=== PATIENT | male | born 1965 | race Caucasian/White ===

== ENCOUNTER → 2017-08-21 10:13 | Outpatient (CLI) | payer BC, SELFPAY ==
[2017-08-21 13:39] LABS: Basophils % 0.2 % (0.1-2.0); Eosinophils # 0.1 K/mm3 (0.0-0.4); Eosinophils % 1.1 % (0.1-12.0); Hematocrit 44.5 % (42.0-52.0); Hemoglobin 14.5 g/dL (14.1-18.0); Lymphocytes # 2.1 K/mm3 (0.7-4.5); Lymphocytes % 27.7 K/mm3 (10-50); Mean Corpuscular HGB Conc 32.6 g/dL (31.8-35.4); Mean Corpuscular Hemoglobin 29.2 pg (27.0-31.2); Mean Corpuscular Volume 89.6 fl (80-94); Mean Platelet Volume 8.2 fl (7.4-10.4); Monocytes # 0.5 K/mm3 (0.1-1.0); Monocytes % 6.2 % (1.7-9.3); Neutrophils # 4.9 K/mm3 (1.8-7.8); Neutrophils % 64.8 % (37.0-80.0); Platelet Count 296 K/mm3 (142-424); Red Blood Count 4.97 M/mm3 (4.60-6.20); White Blood Count 7.6 K/mm3 (4.8-10.8)
[2017-08-21 14:03] LABS: Alanine Aminotransferase 26 U/L (12-78); Albumin Level 3.6 gm/dL (3.4-5.0); Albumin/Globulin Ratio 1.1 (1.1-1.8); Alkaline Phosphatase 69 U/L (46-116); Aspartate Amino Transferase 10 U/L (15-37); Bilirubin,Total 0.3 mg/dL (0.2-1.0); Blood Urea Nitrogen 21 mg/dL (7-18); Calcium 8.7 mg/dL (8.5-10.1); Carbon Dioxide 30 mmol/L (21.0-32.0); Chloride 106 mmol/L (98-107); Chol/HDL Ratio 4.5 (1-3.5); Cholesterol 187 mg/dL (140-200); Creatinine,Serum 1.12 mg/dL (0.70-1.30); Estimated Glomerular Filt Rate 69 ml/min (>60); GFR (African American) 83 ML/MIN (>60); Globulin 3.4 gm/dl (1.3-3.2); Glucose 93 mg/dL (74-106); HDL Cholesterol 42 mg/dL (27-67); LDL Cholesterol 125 mg/dL (0-130); Sodium 143 mmol/L (136-145); T4 (Thyroxine) 7.4 ug/dl (4.7-13.3); Thyroid Stimulating Hormone 1.59 uIU/ml (0.358-3.740); Triglycerides 102 mg/dL (30-200); VLDL Cholesterol 20 mg/dL (0-40)
[2017-08-22 11:39] LABS: PSA, Free 0.21 ng/mL; Prostate Specific Ag 0.7 ng/mL (0.0-4.0); Testosterone,Total 371 ng/dL (264-916)
== END ==
PROVIDERS: Visit Provider Physician Assistant
DX: L50.9 Urticaria, unspecified (principal)
CPT/HCPCS: 80053; 80061; 84153; 84154; 84403; 84436; 84443; 85025; 86677

== ENCOUNTER → 2017-09-04 14:08 | Outpatient (CLI) | payer BC, SELFPAY ==
--- NOTE | 2017-09-04 14:16 | US_ITS ---
US Arterial Ankle Brachial Ind ITS.REASON: cold feet, diminished pulses ORDERING PHYSICIAN: ANÍBAL Dougherty PATIENT AGE: 51 years TECHNIQUE: Segmental pressures obtained of both right and left leg. These are compared to brachial blood pressure to yield index at each level sampled including summary ZBIGNIEW. The data sheets from the procedure are available in PACS FINDINGS Rest study only performed today No prior studies available for comparison. Blood pressures reported are in millimeters mercury. RIGHT LEG ZBIGNIEW = 1.2. Right TBI is 0.8 Brachial BP: 133 Thigh BP: 134 Calf BP: 157 Ankle PT: 165 Ankle DP : 145 Digit =107 LEFT LEG ZBIGNIEW = 1.2 Left TBI 0.8 Brachial BPD: 133 Thigh BP: 146 Calf BP: 148 Ankle PT:153 Ankle DP: 157 Digit = 112 Pulses and waveforms: Normal IMPRESSION: The ABIs as reported above are within normal limits. Waveforms and pulses are also unremarkable.
== END ==
PROVIDERS: PCP Physician Assistant; Visit Provider Physician Assistant
DX: L50.9 Urticaria, unspecified (principal); R09.89 Other specified symptoms and signs involving the circulatory and respiratory systems
CPT/HCPCS: 93922

== ENCOUNTER → 2018-12-28 10:23 | Outpatient (CLI) | payer BC, SELFPAY ==
[2018-12-28 14:22] LABS: Basophils % 0.3 % (0.1-2.0); Eosinophils # 0.1 K/mm3 (0.0-0.4); Eosinophils % 1.7 % (0.1-12.0); Hematocrit 48.9 % (42.0-52.0); Hemoglobin 15.3 g/dL (14.1-18.0); Lymphocytes % 24.5 % (10-50); Mean Corpuscular HGB Conc 31.2 g/dL (31.8-35.4); Mean Corpuscular Hemoglobin 29.5 pg (27.0-31.2); Mean Corpuscular Volume 94.5 fl (80-94); Monocytes # 0.4 K/mm3 (0.1-1.0); Monocytes % 5.4 % (1.7-9.3); Neutrophils # 5.5 K/mm3 (1.8-7.8); Neutrophils % 68.1 % (37.0-80.0); Platelet Count 311 K/mm3 (142-424); Red Blood Count 5.18 M/mm3 (4.60-6.20); Red Cell Distribution Width 13.3 % (11.5-17.5)
[2018-12-28 14:54] LABS: Alanine Aminotransferase 28 U/L (12-78); Albumin Level 3.6 gm/dL (3.4-5.0); Albumin/Globulin Ratio 1.1 (1.1-1.8); Alkaline Phosphatase 71 U/L (46-116); Anion Gap 14.4 mEq/L (5-15); Aspartate Amino Transferase 15 U/L (15-37); Bilirubin,Total 0.3 mg/dL (0.2-1.0); Blood Urea Nitrogen 24 mg/dL (7-18); Calcium 8.5 mg/dL (8.5-10.1); Carbon Dioxide 27 mmol/L (21.0-32.0); Chloride 107 mmol/L (98-107); Chol/HDL Ratio 6.6 (1-3.5); Cholesterol 191 mg/dL (140-200); Creatinine,Serum 1.26 mg/dL (0.70-1.30); Estimated Glomerular Filt Rate 60 ml/min (>60); GFR (African American) 72 ML/MIN (>60); Globulin 3.3 gm/dl (1.3-3.2); Glucose 107 mg/dL (74-106); HDL Cholesterol 29 mg/dL (27-67); LDL Cholesterol 116 mg/dL (0-130); Potassium 4.4 mmoL/L (3.5-5.1); Sodium 144 mmol/L (136-145); Thyroid Stimulating Hormone 1.36 uIU/ml (0.358-3.740); Total Protein,Serum 6.9 gm/dL (6.4-8.2); Triglycerides 231 mg/dL (30-200); VLDL Cholesterol 46 mg/dL (0-40)
[2018-12-30 13:54] LABS: Vitamin D 25 Hydroxy 22.2 ng/mL (30.0-100.0)
[2018-12-30 14:41] LABS: H. pylori Breath Test Negative (Negative)
== END ==
PROVIDERS: PCP Physician Assistant; Visit Provider Physician Assistant
DX: R53.83 Other fatigue (principal); R07.9 Chest pain, unspecified; E55.9 Vitamin D deficiency, unspecified; Z79.899 Other long term (current) drug therapy
CPT/HCPCS: 80053; 80061; 82652; 83013; 84436; 84443; 85025

== ENCOUNTER → 2019-01-22 16:25 | Outpatient (CLI) | payer BC, SELFPAY ==
--- NOTE | 2019-01-22 16:31 | XR_ITS ---
XR knee LT 3V HISTORY: ITS.REASON: pain ORDERING PHYSICIAN: Teresa Hickey APRN PATIENT AGE: 53 years COMPARISON: None FINDINGS: Mild osteoarthritic changes are present at the medial compartment. Small osteophytes are present at the proximal tibia. No fracture or dislocation IMPRESSION: Mild osteoarthritis
== END ==
PROVIDERS: PCP Physician Assistant; Visit Provider Nurse Practitioner Family
DX: M25.562 Pain in left knee (principal)
CPT/HCPCS: 73562

== ENCOUNTER → 2020-03-09 16:28 | Outpatient (CLI) | payer BC, MEDICAID, SELFPAY ==
--- NOTE | 2020-03-09 16:38 | XR_ITS ---
PROCEDURE: XR CHEST 2V CLINICAL HISTORY: pre op Cough COMPARISON: No exams were available for comparison FINDINGS: The cardiomediastinal silhouette and pulmonary vascularity are within normal limits. The lungs are clear without infiltrates, suspicious nodules, or pleural effusions. No acute bony abnormalities. IMPRESSION: No acute findings. Dictated by: Christian Rivera MD 03/10/2020 06:32 Christian Rivera MD in [facility] 03/10/2020 06:32
--- NOTE | 2020-03-09 16:57 | ECG_ITS ---
APPROVED REPORT Exam: Resting ECG HR:58 bpm ECG Measurements Heart Rate 58 AXES MS 188 P 40 QRSd 112 QRS 33 QT 420 T 30 QTc 412 <Conclusion> Sinus bradycardia Otherwise normal ECG Electronically signed by : Israel Jane, 03/10/2020 07:26:27
[2020-03-09 17:14] LABS: Basophils % 0.4 % (0.1-2.0); Eosinophils # 0.2 K/mm3 (0.0-0.4); Eosinophils % 1.6 % (0.1-12.0); Hematocrit 42.1 % (42.0-52.0); Hemoglobin 14.2 g/dL (14.1-18.0); Lymphocytes # 2.8 K/mm3 (0.7-4.5); Mean Corpuscular HGB Conc 33.7 g/dL (31.8-35.4); Mean Corpuscular Hemoglobin 30.5 pg (27.0-31.2); Mean Corpuscular Volume 90.6 fl (80-94); Mean Platelet Volume 7.9 fl (7.4-10.4); Monocytes # 0.6 K/mm3 (0.1-1.0); Monocytes % 6.2 % (1.7-9.3); Neutrophils # 5.8 K/mm3 (1.8-7.8); Neutrophils % 61.8 % (37.0-80.0); Platelet Count 287 K/mm3 (142-424); Red Blood Count 4.65 M/mm3 (4.60-6.20); Red Cell Distribution Width 13.4 % (11.5-17.5); White Blood Count 9.5 K/mm3 (4.8-10.8)
[2020-03-09 17:23] LABS: Activated Partial Thrombo Time 24.5 seconds (23.6-34.0); INR 1.03 (0.9-1.1); Prothrombin Time 10.6 seconds (9.4-11.8)
[2020-03-09 18:08] LABS: Alanine Aminotransferase 20 U/L (12-78); Albumin Level 3.8 g/dl (3.5-5.0); Albumin/Globulin Ratio 1.3 (1.1-1.8); Alkaline Phosphatase 80 U/L (38-126); Anion Gap 8.4 mEq/L (5-15); Aspartate Amino Transferase 23 U/L (17-59); Bilirubin,Total 0.3 mg/dl (0.2-1.3); Blood Urea Nitrogen 18 mg/dl (9-20); Carbon Dioxide 29 mmol/L (22.0-30.0); Chloride 106 mmol/L (98-107); Chol/HDL Ratio 6.2 (1-3.5); Cholesterol 211 mg/dl (140-200); Estimated Glomerular Filt Rate 69 ml/min (>60); GFR (African American) 84 ML/MIN (>60); Glucose 105 mg/dl (74-100); HDL Cholesterol 34 mg/dl (40-60); Potassium 4.4 mmoL/L (3.5-5.1); Sodium 139 mmol/L (136-145); Total Protein,Serum 6.8 g/dl (6.3-8.2); Triglycerides 270 mg/dl (30-150); VLDL Cholesterol 54 mg/dL (0-40)
[2020-03-09 18:19] LABS: Direct LDL Cholesterol 131.35 mg/dL (100-129)
[2020-03-09 18:26] LABS: T4 (Thyroxine) 7.8 ug/dl (5.53-11.0)
[2020-03-09 18:40] LABS: Thyroid Stimulating Hormone 2.11 uIU/mL (0.465-4.68)
[2020-03-11 18:19] LABS: Prealbumin 24 mg/dL (10-36)
[2020-03-11 18:20] LABS: PSA, Free 0.21 ng/mL; Prostate Specific Ag 0.6 ng/mL (0.0-4.0)
== END ==
PROVIDERS: PCP Physician Assistant; Visit Provider Physician Assistant
DX: Z01.818 Encounter for other preprocedural examination (principal); M25.561 Pain in right knee
CPT/HCPCS: 36415; 71046; 80053; 80061; 84134; 84153; 84154; 84436; 84443; 85025; 85610; 85730; 93005

== ENCOUNTER 2020-12-18 01:55 | Emergency (ER) | payer BC, OTHER, SELFPAY ==
[2020-12-18 02:02] VITALS: BP 133/93; PULSE 71; RESP 22; TEMP 36.4; O2SAT 98; BMI 42.2
--- NOTE | 2020-12-18 02:02 | ECG_ITS ---
APPROVED REPORT Exam: Resting ECG HR:66 bpm ECG Measurements Heart Rate 66 AXES OK 174 P 57 QRSd 108 QRS 44 QT 408 T 45 QTc 427 Conclusion Normal sinus rhythm Normal ECG Electronically signed by : Israel Jane, 12/18/2020 17:31:49
--- NOTE | 2020-12-18 02:08 | CT_ITS ---
PROCEDURE INFORMATION: Exam: CT Head Without Contrast Exam date and time: 12/18/2020 2:08 AM Age: 55 years old Clinical indication: Patient HX: Dizziness with n/v for 2-4 hours TECHNIQUE: Imaging protocol: Computed tomography of the head without contrast. Radiation optimization: All CT scans at this facility use at least one of these dose optimization techniques: automated exposure control; mA and/or kV adjustment per patient size (includes targeted exams where dose is matched to clinical indication); or iterative reconstruction. COMPARISON: No relevant prior studies available. FINDINGS: Brain: No mass effect or midline shift. No intracranial hemorrhage. No significant white matter disease. No edema. No evidence of acute territorial ischemia. Cerebral ventricles: No ventriculomegaly. Paranasal sinuses: Mucosal thickening in the right maxillary sinus. No air-fluid levels. Mastoid air cells: No significant mastoid effusion. Bones/joints: No acute fracture. Soft tissues: No acute findings. IMPRESSION: No acute intracranial findings.
--- NOTE | 2020-12-18 02:12 | XR_ITS ---
PROCEDURE INFORMATION: Exam: XR Chest Exam date and time: 12/18/2020 2:12 AM Age: 55 years old Clinical indication: Patient HX: Dizzy, denies any chest symptoms; Additional info: Dizzy n/v TECHNIQUE: Imaging protocol: XR of the chest. Views: 1 view. COMPARISON: CR XR CHEST 2V 03/09/2020 4:40 PM FINDINGS: Lungs: No acute findings or consolidation. Pleural spaces: No pleural effusion. No pneumothorax. Heart/Mediastinum: No acute findings or cardiomegaly. Bones/joints: No acute findings. IMPRESSION: No acute cardiopulmonary findings.
--- NOTE | 2020-12-18 02:19 | HMH.EDGENADL ---
ED Disposition Clinical Impression: Dizziness Disposition: Home, Self-Care Condition on Discharge: Fair Instructions: Vertigo, DI for Vertigo Additional Instructions: You have been evaluated for dizziness. Likely due to vertigo. Please monitor your symptoms at home. Use scopolamine patch if needed. Follow-up with your primary care doctor in 1 to 2 days for recheck. Return to the emergency department for any new or worsening symptoms. Prescriptions: Scopolamine [Transderm-Scop 1.5mg/72hrs patch] 1 each TD Q72H PRN #3 patch.td.3 PRN Reason: Dizziness Transmission Status: Pending to [facility] Referrals: Ashley Buchanan PA [Primary Care Provider] - Time of Disposition: 04:06 - Critical Care Critical Care Time: No Attestation: On 12/18/20, the high probability of a clinically significant, sudden or life threatening deterioration of the following system(s) required my full and direct attention, intervention and personal management. The time I documented below is in addition to time spent performing reported procedures but includes the following listed in this critical care notation. Medical Decision Making - Medical Records Medical records reviewed: Yes: I reviewed the patient's medical records. - Suman Inquiry Pt receiving controlled substance: No Vital Signs: 12/18/20 02:02 12/18/20 02:46 Temperature 97.6 F Temperature Source Oral Pulse Rate 69 Pulse Rate [Right] 71 Respiratory Rate 22 21 Blood Pressure 146/92 H Blood Pressure [Right Arm] 133/93 H Blood Pressure Mean [Right Arm] 106 Blood Pressure Source [Right Arm] Automatic Cuff Blood Pressure Position [Right Arm] Sitting 02 Sat by Pulse Oximetry 98 95 Oxygen Delivery Method Room Air - Lab Data Lab Results 12/18/20 02:10: WBC 11.4 H, RBC 4.61, Hgb 13.1 L, Hct 39.8 L, MCV 86.2, MCH 28.5, MCHC 33.0, RDW 14.1, Plt Count 334, MPV 7.9, Neut % (Auto) 75.5, Lymph % (Auto) 18.2, Dickinson % (Auto) 5.3, Eos % (Auto) 0.7, Baso % (Auto) 0.3, Neut # (Auto) 8.6 H, Lymph # (Auto) 2.1, Dickinson # (Auto) 0.6, Eos # (Auto) 0.1, Baso # (Auto) 0.0 12/18/20 02:10: Sodium 141, Potassium 4.2, Chloride 106, Carbon Dioxide 27, Anion Gap 12.2, BUN 25 H, Creatinine 1.30 H, Estimated Creat Clear 72, Estimated GFR 57 L, Est GFR ( Amer) 69, Glucose 134 H, Calcium 9.1, Total Bilirubin 0.4, AST 22, ALT 19, Alkaline Phosphatase 85, Troponin I < 0.01, Total Protein 7.5, Albumin 4.1, Globulin 3.4 H, Albumin/Globulin Ratio 1.2 Result diagrams: 12/18/20 02:10 12/18/20 02:10 Orders (Tests/Meds): ED MEDICATIONS Generic Name Dose Route Start Last Admin Trade Name Freq PRN Reason Stop Dose Admin Lactated Ringer's 1,000 mls @ 999 mls/hr 12/18/20 02:15 12/18/20 02:16 Lactated Ringer's 1000 Ml Bag IV 12/18/20 03:15 999 mls/hr .Q1H1M BRANDY Administration Discontinued Medications Generic Name Dose Route Start Last Admin Trade Name Freq PRN Reason Stop Dose Admin Ondansetron HCl 4 mg 12/18/20 02:10 12/18/20 02:14 Ondansetron 4mg/2ml Vial IV 12/18/20 02:11 4 mg ONCE ONE Administration ORDERS Category Date Time Status Troponin I Q3H Lab 12/18/20 05:15 Ordered Troponin I Q3H Lab 12/18/20 08:15 Ordered - CT Data CT Scan: Head Time Received: 04:[address] Reviewed: Yes: I have reviewed the patient's CT results, I have viewed the radiologist's interpretation Preliminary Findings: Normal/NAD Medical Decision Narrative: In summary this is a 55-year-old male presenting to the emergency department after an episode of dizziness. Patient clinically stable on arrival. Vital signs within normal limits. Most likely diagnosis is vertigo, positional. Cannot exclude metabolic derangement, intracranial mass, cardiac arrhythmia. Will obtain CBC, CMP, chest x-ray, EKG, troponin profile, noncontrast head CT. EKG shows sinus rhythm without arrhythmia. Initial laboratory results reassuring. Slight renal insufficiency with c
[2020-12-18 02:23] LABS: Basophils % 0.3 % (0.1-2.0); Eosinophils # 0.1 K/mm3 (0.0-0.4); Eosinophils % 0.7 % (0.1-12.0); Hematocrit 39.8 % (42.0-52.0); Hemoglobin 13.1 g/dL (14.1-18.0); Lymphocytes # 2.1 K/mm3 (0.7-4.5); Lymphocytes % 18.2 % (10-50); Mean Corpuscular Hemoglobin 28.5 pg (27.0-31.2); Mean Corpuscular Volume 86.2 fl (80-94); Mean Platelet Volume 7.9 fl (7.4-10.4); Monocytes # 0.6 K/mm3 (0.1-1.0); Monocytes % 5.3 % (1.7-9.3); Neutrophils # 8.6 K/mm3 (1.8-7.8); Neutrophils % 75.5 % (37.0-80.0); Platelet Count 334 K/mm3 (142-424); Red Blood Count 4.61 M/mm3 (4.60-6.20); Red Cell Distribution Width 14.1 % (11.5-17.5); White Blood Count 11.4 K/mm3 (4.8-10.8)
[2020-12-18 02:27] LABS: Alanine Aminotransferase 19 U/L (12-78); Albumin Level 4.1 g/dl (3.5-5.0); Albumin/Globulin Ratio 1.2 (1.1-1.8); Alkaline Phosphatase 85 U/L (38-126); Anion Gap 12.2 mEq/L (5-15); Aspartate Amino Transferase 22 U/L (17-59); Bilirubin,Total 0.4 mg/dl (0.2-1.3); Blood Urea Nitrogen 25 mg/dl (9-20); Calcium 9.1 mg/dl (8.4-10.2); Carbon Dioxide 27 mmol/L (22.0-30.0); Chloride 106 mmol/L (98-107); Creatinine Clearance Estimated 72 mL/min (50-200); Estimated Glomerular Filt Rate 57 ml/min (>60); GFR (African American) 69 ML/MIN (>60); Globulin 3.4 g/dL (1.3-3.2); Glucose 134 mg/dl (74-100); Potassium 4.2 mmoL/L (3.5-5.1); Sodium 141 mmol/L (136-145); Total Protein,Serum 7.5 g/dl (6.3-8.2)
[2020-12-18 02:46] VITALS: BP 146/92; PULSE 69; RESP 21; O2SAT 95
[2020-12-18 02:48] LABS: Troponin I < 0.01 ng/ml (0.00-0.034)
[2020-12-18 03:00] VITALS: BP 140/82; PULSE 69; RESP 20; O2SAT 96
[2020-12-18 04:17] VITALS: BP 135/71; PULSE 69; RESP 20; TEMP 36.4; O2SAT 95
== END 2020-12-18 04:19 | disposition home or self-care (01) ==
PROVIDERS: Emergency Provider Emergency Medicine; PCP Physician Assistant
DX: R42 Dizziness and giddiness (principal); R11.2 Nausea with vomiting, unspecified; E78.5 Hyperlipidemia, unspecified; Z79.899 Other long term (current) drug therapy
CPT/HCPCS: 70450; 71045; 80053; 84484; 85025; 93005; 96365; 96375; 99283; J2405

== ENCOUNTER → 2021-01-03 10:55 | Outpatient (CLI) | payer BC, SELFPAY ==
[2021-01-04 08:24] LABS: Testosterone,Total 153 ng/dL (264-916)
== END ==
PROVIDERS: Visit Provider Physician Assistant
DX: R79.89 Other specified abnormal findings of blood chemistry (principal); E29.1 Testicular hypofunction
CPT/HCPCS: 36415; 84403

== ENCOUNTER → 2021-01-11 09:58 | Outpatient (CLI) | payer BC, SELFPAY ==
[2021-01-12 08:22] LABS: Testosterone,Total 94 ng/dL (264-916)
== END ==
PROVIDERS: Visit Provider Physician Assistant
DX: R79.89 Other specified abnormal findings of blood chemistry (principal)
CPT/HCPCS: 36415; 84403

== ENCOUNTER → 2021-10-16 16:46 | Outpatient (CLI) | payer BC, SELFPAY ==
[2021-10-16 14:30] LABS: Basophils % 0.3 % (0.1-2.0); Eosinophils # 0.1 K/mm3 (0.0-0.4); Hematocrit 45.6 % (42.0-52.0); Hemoglobin 14.8 g/dL (14.1-18.0); Lymphocytes # 2.6 K/mm3 (0.7-4.5); Lymphocytes % 29.2 % (10-50); Mean Corpuscular HGB Conc 32.4 g/dL (31.8-35.4); Mean Corpuscular Hemoglobin 28.9 pg (27.0-31.2); Mean Corpuscular Volume 89.2 fl (80-94); Mean Platelet Volume 8.4 fl (7.4-10.4); Monocytes # 0.5 K/mm3 (0.1-1.0); Monocytes % 5.2 % (1.7-9.3); Neutrophils # 5.8 K/mm3 (1.8-7.8); Neutrophils % 64.4 % (37.0-80.0); Platelet Count 348 K/mm3 (142-424); Red Blood Count 5.11 M/mm3 (4.60-6.20); White Blood Count 9.1 K/mm3 (4.8-10.8)
[2021-10-16 14:33] LABS: Chloride 107 mmol/L (98-107); Sodium 139 mmol/L (136-145)
[2021-10-16 14:36] LABS: Alanine Aminotransferase 17 U/L (12-78); Albumin Level 3.8 g/dl (3.5-5.0); Albumin/Globulin Ratio 1.2 (1.1-1.8); Alkaline Phosphatase 90 U/L (38-126); Aspartate Amino Transferase 24 U/L (17-59); Bilirubin,Total 0.5 mg/dl (0.2-1.3); Blood Urea Nitrogen 21 mg/dl (9-20); Calcium 9.4 mg/dl (8.4-10.2); Carbon Dioxide 27 mmol/L (22.0-30.0); Cholesterol 258 mg/dl (140-200); Estimated Glomerular Filt Rate 63 ml/min (>60); GFR (African American) 76 ML/MIN (>60); Globulin 3.1 g/dL (1.3-3.2); Glucose 113 mg/dl (74-100); Total Protein,Serum 6.9 g/dl (6.3-8.2); Triglycerides 245 mg/dl (30-150); VLDL Cholesterol 49 mg/dL (0-40)
[2021-10-16 14:37] LABS: Chol/HDL Ratio 8.9 (1-3.5); HDL Cholesterol 29 mg/dl (40-60)
[2021-10-16 14:48] LABS: Direct LDL Cholesterol 161.98 mg/dL (100-129)
[2021-10-16 15:07] LABS: Thyroid Stimulating Hormone 1.66 uIU/mL (0.465-4.68)
[2021-10-16 16:07] LABS: Erythrocyte Sedimentation Rate 19 mm/hr (0-20)
[2021-10-16 19:43] LABS: Prostate Specific Ag Screen 1.3 ng/ml (0.0-4.0)
[2021-10-16 20:02] LABS: Vitamin B12 325 pg/mL (239-931)
[2021-10-17 16:37] LABS: Hemoglobin A1C 5.8 % (4.0-6.0)
[2021-10-18 13:30] LABS: RA Latex Turbid. <10.0 IU/mL (<14.0)
[2021-10-18 14:14] LABS: Anti-Centromere B Antibodies <0.2 AI (0.0-0.9); Anti-DNA (DS) Ab Qn 2 IU/mL (0-9); Anti-Jo-1 <0.2 AI (0.0-0.9); Anti-Smith Antibody <0.2 AI (0.0-0.9); Antichromatin Antibodies <0.2 AI (0.0-0.9); Antiscleroderma-70 Antibodies <0.2 AI (0.0-0.9); RNP Antibodies 0.2 AI (0.0-0.9); Sjogren's Anti-SS-A <0.2 AI (0.0-0.9); Sjogren's Anti-SS-B <0.2 AI (0.0-0.9)
[2021-10-19 01:08] LABS: Anti-Cyclic Citrullinated Pept 7 units (0-19)
== END ==
PROVIDERS: Visit Provider Physician Assistant
DX: Z00.00 Encounter for general adult medical examination without abnormal findings (principal); Z12.5 Encounter for screening for malignant neoplasm of prostate; M25.50 Pain in unspecified joint; R73.9 Hyperglycemia, unspecified; E55.9 Vitamin D deficiency, unspecified
CPT/HCPCS: 80053; 80061; 82306; 82607; 83036; 84443; 85025; 85651; 86140; 86200; 86225; 86235; 86431; G0103

== ENCOUNTER → 2022-08-08 14:31 | Outpatient (CLI) | payer BC, SELFPAY ==
[2022-08-08 17:53] LABS: Basophils % 0.5 % (0.1-2.0); Eosinophils # 0.1 K/mm3 (0.0-0.4); Eosinophils % 1.1 % (0.1-12.0); Hematocrit 45.8 % (42.0-52.0); Hemoglobin 14.6 g/dL (14.1-18.0); Lymphocytes # 2.5 K/mm3 (0.7-4.5); Lymphocytes % 29.7 % (10-50); Mean Corpuscular HGB Conc 31.8 g/dL (31.8-35.4); Mean Corpuscular Hemoglobin 29.1 pg (27.0-31.2); Mean Corpuscular Volume 91.4 fl (80-94); Mean Platelet Volume 9.7 fl (7.4-10.4); Monocytes # 0.6 K/mm3 (0.1-1.0); Monocytes % 6.6 % (1.7-9.3); Neutrophils # 5.2 K/mm3 (1.8-7.8); Neutrophils % 62.2 % (37.0-80.0); Platelet Count 372 K/mm3 (142-424); Red Blood Count 5.01 M/mm3 (4.60-6.20); Red Cell Distribution Width 14.1 % (11.5-17.5); White Blood Count 8.4 K/mm3 (4.8-10.8)
[2022-08-08 18:00] LABS: Chloride 106 mmol/L (98-107); Potassium 5.3 mmoL/L (3.5-5.1); Sodium 142 mmol/L (136-145)
[2022-08-08 18:03] LABS: Alanine Aminotransferase 16 U/L (12-78); Albumin Level 3.8 g/dl (3.5-5.0); Albumin/Globulin Ratio 1.2 (1.1-1.8); Alkaline Phosphatase 79 U/L (38-126); Anion Gap 15.3 mEq/L (5-15); Aspartate Amino Transferase 29 U/L (17-59); Bilirubin,Total 0.5 mg/dl (0.2-1.3); Blood Urea Nitrogen 21 mg/dl (9-20); Calcium 8.5 mg/dl (8.4-10.2); Carbon Dioxide 26 mmol/L (22.0-30.0); Chol/HDL Ratio 8.6 (1-3.5); Cholesterol 233 mg/dl (140-200); Estimated Glomerular Filt Rate 62 ml/min (>60); GFR (African American) 76 ML/MIN (>60); Globulin 3.2 g/dL (1.3-3.2); Glucose 111 mg/dl (74-100); HDL Cholesterol 27 mg/dl (40-60); Triglycerides 175 mg/dl (30-150); VLDL Cholesterol 35 mg/dL (0-40)
[2022-08-08 18:14] LABS: Direct LDL Cholesterol 156.75 mg/dL (100-129)
[2022-08-08 18:20] LABS: 25-OH Vitamin D, Total 24.8 ng/mL (30-100)
[2022-08-08 18:34] LABS: Thyroid Stimulating Hormone 1.14 uIU/mL (0.465-4.68)
[2022-08-12 18:09] LABS: Anti-DNA (DS) Ab Qn 3 IU/mL (0-9)
== END ==
PROVIDERS: PCP Physician Assistant; Visit Provider Physician Assistant
DX: M25.50 Pain in unspecified joint (principal); E78.5 Hyperlipidemia, unspecified; E55.9 Vitamin D deficiency, unspecified
CPT/HCPCS: 36415; 80053; 80061; 82306; 84443; 85025; 86225

== ENCOUNTER → 2022-11-07 11:47 | Outpatient (CLI) | payer OTHER, SELFPAY | PROVIDERS: PCP Physician Assistant; Visit Provider Physician Assistant | DX: E78.5 Hyperlipidemia, unspecified (principal) ==

== ENCOUNTER → 2022-11-07 12:00 | Outpatient (CLI) | payer OTHER, SELFPAY ==
[2022-11-07 14:46] LABS: Basophils % 0.2 % (0.1-2.0); Eosinophils # 0.1 K/mm3 (0.0-0.4); Eosinophils % 0.9 % (0.1-12.0); Hematocrit 44.6 % (42.0-52.0); Hemoglobin 14.5 g/dL (14.1-18.0); Lymphocytes % 27.2 % (10-50); Mean Corpuscular HGB Conc 32.4 g/dL (31.8-35.4); Mean Corpuscular Hemoglobin 29.8 pg (27.0-31.2); Mean Corpuscular Volume 92.1 fl (80-94); Mean Platelet Volume 9.3 fl (7.4-10.4); Monocytes # 0.7 K/mm3 (0.1-1.0); Monocytes % 6.4 % (1.7-9.3); Neutrophils # 7.2 K/mm3 (1.8-7.8); Neutrophils % 65.3 % (37.0-80.0); Platelet Count 355 K/mm3 (142-424); Red Blood Count 4.85 M/mm3 (4.60-6.20); Red Cell Distribution Width 13.8 % (11.5-17.5)
[2022-11-07 14:59] LABS: Alanine Aminotransferase 19 U/L (12-78); Albumin Level 3.8 g/dl (3.5-5.0); Albumin/Globulin Ratio 1.3 (1.1-1.8); Alkaline Phosphatase 75 U/L (38-126); Anion Gap 15.9 mEq/L (5-15); Aspartate Amino Transferase 25 U/L (17-59); Bilirubin,Total 0.5 mg/dl (0.2-1.3); Blood Urea Nitrogen 17 mg/dl (9-20); Calcium 8.7 mg/dl (8.4-10.2); Carbon Dioxide 28 mmol/L (22.0-30.0); Chloride 100 mmol/L (98-107); Cholesterol 159 mg/dl (140-200); Estimated Glomerular Filt Rate 62 ml/min (>60); GFR (African American) 76 ML/MIN (>60); Glucose 100 mg/dl (74-100); HDL Cholesterol 32 mg/dl (40-60); Potassium 4.9 mmoL/L (3.5-5.1); Sodium 139 mmol/L (136-145); Total Protein,Serum 6.8 g/dl (6.3-8.2); Triglycerides 181 mg/dl (30-150); VLDL Cholesterol 36 mg/dL (0-40)
[2022-11-07 15:10] LABS: Direct LDL Cholesterol 101.22 mg/dL (100-129)
[2022-11-07 15:28] LABS: Prostate Specific Ag Screen 1.5 ng/ml (0.0-4.0)
[2022-11-07 15:34] LABS: Hemoglobin A1C 5.6 % (4.0-6.0)
== END ==
PROVIDERS: PCP Physician Assistant; Visit Provider Physician Assistant
DX: E78.5 Hyperlipidemia, unspecified (principal); M79.671 Pain in right foot; M79.672 Pain in left foot; E66.01 Morbid (severe) obesity due to excess calories; Z68.41 Body mass index [BMI] 40.0-44.9, adult; Z12.5 Encounter for screening for malignant neoplasm of prostate; Z79.899 Other long term (current) drug therapy
CPT/HCPCS: 80053; 80061; 83036; 84443; 85025; G0103

== ENCOUNTER → 2022-11-21 13:31 | Outpatient (CLI) | payer OTHER, SELFPAY ==
--- NOTE | 2022-11-21 13:35 | XR_ITS ---
FINAL REPORT CLINICAL HISTORY: bilateral heel pain COMPARISON: None FINDINGS: RIGHT FOOT 3 views of the right foot were obtained. There is no acute fracture or dislocation. Visualized joint spaces are normally aligned. Soft tissues are unremarkable. IMPRESSION: No acute bony abnormality. Reviewed, Interpreted and Dictated by Tahir Archibald MD Transcribed by Susy Hendrickson Authenticated and [facility]
--- NOTE | 2022-11-21 13:35 | XR_ITS ---
FINAL REPORT CLINICAL HISTORY: bilateral heel pain COMPARISON: None FINDINGS: LEFT FOOT Three views of the left foot demonstrate no acute fracture or dislocation. The visualized joint spaces are normally aligned. The soft tissues are unremarkable. IMPRESSION: No acute bony abnormality. Reviewed, Interpreted and Dictated by Tahir Archibald MD Transcribed by Susy Hendrickson Authenticated and . [facility]
== END ==
PROVIDERS: PCP Physician Assistant; Visit Provider Physician Assistant
DX: M79.671 Pain in right foot (principal); M79.672 Pain in left foot
CPT/HCPCS: 73630

== ENCOUNTER 2023-07-01 08:40 | Outpatient (RCR) | payer OTHER, SELFPAY | END 2023-07-01 10:00 | disposition home or self-care (01) | LOC: OT 08:40 | PROVIDERS: PCP Physician Assistant; Visit Provider Family Medicine | DX: M25.521 Pain in right elbow (principal) | CPT/HCPCS: 97165 ==

== ENCOUNTER 2023-07-01 10:55 | Outpatient (CLI) | payer OTHER, SELFPAY ==
--- NOTE | 2023-07-01 11:03 | XR_ITS ---
FINAL REPORT CLINICAL HISTORY: right elbow pain FINDINGS: Right elbow Three views were obtained. There is no acute fracture or dislocation. The joint spaces appear normal. No joint effusion is identified. No soft tissue abnormality is identified. IMPRESSION: No acute process. Reviewed, Interpreted and Dictated by Luis Mccabe III, MD Transcribed by Hazel Qureshi Authenticated and [facility]
== END 2023-07-01 23:59 ==
LOC: RAD 10:56
PROVIDERS: PCP Physician Assistant; Visit Provider Orthopaedic Surgery
DX: M25.521 Pain in right elbow (principal)
CPT/HCPCS: 73080

== ENCOUNTER 2024-10-20 06:47 | Outpatient (RCR) | payer OTHER, SELFPAY | END 2024-10-20 23:59 | disposition home or self-care (01) | LOC: PT 06:47 | PROVIDERS: PCP Physician Assistant; Visit Provider Physician Assistant | DX: M54.50 Low back pain, unspecified (principal) | CPT/HCPCS: 97163 ==

== ENCOUNTER 2024-11-17 07:00 | Outpatient (RCR) | payer OTHER, SELFPAY | END 2024-11-17 23:59 | disposition home or self-care (01) | LOC: PT 07:00 | PROVIDERS: PCP Physician Assistant; Visit Provider Physician Assistant | DX: M54.50 Low back pain, unspecified (principal) | CPT/HCPCS: 97012; 97014; 97110; 97140; G0283 ==